=== PATIENT | female | born 1950 | race American Indian/Alaskan Native ===

== ENCOUNTER 2017-05-30 00:30 | Emergency (ER) | payer MEDICARE, MEDICAID ==
--- NOTE | 2017-05-30 02:26 | EDM.PDOC ---
ED HPI GENERAL MEDICAL PROBLEM - General Chief Complaint: General Stated Complaint: Dizziness Time Seen by Provider: 05/30/17 00:38 Source of Information: Reports: Patient History Limitations: Reports: No Limitations - History of Present Illness INITIAL COMMENTS - FREE TEXT/NARRATIVE: Pt. states that she is experiencing dizziness, particularly when going from sitting to standing. Pt. has a history of type 2 dm and currently prescribed metformin, but pt. refuses to take the metformin. She has been alert and easily arousable. Onset: Today Location: Reports: Generalized Worsens with: Reports: Movement Associated Symptoms: Reports: No Other Symptoms - Related Data Allergies Allergy/AdvReac Type Severity Reaction Status Date / Time codeine Allergy Abdominal Verified 05/30/17 01:02 Pain Home Meds: Home Meds . [No Known Home Meds] 05/30/17 [History] ED ROS GENERAL - Review of Systems Review Of Systems: See Below Constitutional: Reports: No Symptoms HEENT: Reports: No Symptoms Respiratory: Reports: Cough, Sputum Cardiovascular: Reports: No Symptoms Endocrine: Reports: High Glucose GI/Abdominal: Reports: No Symptoms : Reports: No Symptoms Musculoskeletal: Reports: No Symptoms Skin: Reports: No Symptoms Neurological: Reports: No Symptoms ED EXAM, GENERAL - Physical Exam Exam: See Below Exam Limited By: No Limitations General Appearance: Alert, WD/WN, No Apparent Distress Ears: Normal External Exam, Normal Canal, Hearing Grossly Normal, Normal TMs Nose: Normal Inspection, Normal Mucosa Throat/Mouth: Normal Inspection, Normal Lips, Normal Teeth Head: Atraumatic, Normocephalic Neck: Normal Inspection, Supple, Non-Tender, Full Range of Motion Respiratory/Chest: No Respiratory Distress, Lungs Clear, Normal Breath Sounds, No Accessory Muscle Use, Chest Non-Tender Cardiovascular: Normal Peripheral Pulses, Regular Rate, Rhythm, No Edema, No JVD , No Murmur, No Rub GI/Abdominal: Normal Bowel Sounds, Soft, Non-Tender, No Abnormal Bruit Neurological: Alert, Oriented, CN II-XII Intact, Normal Cognition, Normal Gait, Normal Reflexes, No Motor/Sensory Deficits Course - Vital Signs Last Recorded V/S: Last Vital Signs Temp 35 C L 05/30/17 00:30 Pulse 73 05/30/17 00:30 Resp 16 05/30/17 00:30 BP 155/66 H 05/30/17 00:30 Pulse Ox 94 L 05/30/17 00:30 - Orders/Labs/Meds Labs: Laboratory Tests 05/30/17 Range/Units 00:40 POC Glucose 171 H (74-106) mg/dL Departure - Departure Time of Disposition: 00:30 Disposition: Home, Self-Care 01 Condition: Good Clinical Impression: Hyperglycemia - Discharge Information Instructions: Type 2 Diabetes Mellitus, Adult Forms: ED Department Discharge Additional Instructions: Metformin 500mg twice daily Drink plenty of fluids Establish care at either [facility] [phone] [facility] [phone] - Assessment/Plan Assessment:: dehydration secondary to hyperglycemia Plan: Metformin 500mg twice daily Drink plenty of fluids Establish care at either [facility] [phone] [facility]
== END 2017-05-30 01:23 | disposition home or self-care (01) ==
LOC: VM.ED 00:30
DX: E11.65 Type 2 diabetes mellitus with hyperglycemia (principal); Z88.5 Allergy status to narcotic agent
CPT/HCPCS: 82962; 99283; 99283-GF

== ENCOUNTER 2017-12-22 16:13 | Emergency (ER) | payer MEDICARE, MEDICAID ==
[2017-12-22] MEDS ORDERED: Sodium Chloride 0.9% 10 ML Syringe FLUSH PRN (16:26)
[2017-12-22] MEDS ORDERED: Ondansetron 4 MG/2 ML SDV IVPUSH ONE (16:36)
--- NOTE | 2017-12-22 17:51 | EDM.PDOC ---
ED HPI GENERAL MEDICAL PROBLEM - General Chief Complaint: Abdominal Pain Stated Complaint: Abd Pain; N/V Time Seen by Provider: 12/22/17 16:24 Source of Information: Reports: Patient, Family, RN, RN Notes Reviewed History Limitations: Reports: No Limitations - History of Present Illness INITIAL COMMENTS - FREE TEXT/NARRATIVE: Patient sent to this ER from [facility] in [place] for a history of generalized abdominal pain, intractable nausea and vomiting for the past few days. Patient states her vomitus is green/bile like. She denies any diarrhea. Patient's appetite has been poor. She stop smoking 2 days ago. Patient also complains of a headache with blurry vision. She is having troubles with ambulation. She is a high risk for falls. She denies any recent infections. Patient is not really eating or drinking. She has a history of diabetes. No recent abdominal surgeries. Patient denies any chest pain or SOB. Duration: Waxing/Waning Location: Reports: Abdomen, Generalized Quality: Reports: Ache, Dull Severity: Mild Improves with: Reports: None Worsens with: Reports: Movement Context: Denies: Exercise, Sick Contact, Trauma Associated Symptoms: Reports: Headaches, Nausea/Vomiting Treatments MUSIC THERAPY SPECIALIST: Reports: Other (see below) (None) Abdominal Pain Score (Numeric/FACES): 5 - Related Data Allergies Allergy/AdvReac Type Severity Reaction Status Date / Time codeine Allergy Abdominal Verified 12/22/17 17:04 Pain isoniazid Allergy Cannot Verified 12/22/17 17:06 Remember methylprednisolone Allergy Cannot Verified 12/22/17 17:04 Remember dye Allergy Itching Uncoded 12/22/17 17:04 Home Meds: Home Meds Citalopram [Citalopram HBr] 40 mg PO DAILY 12/22/17 [History] Clopidogrel Bisulfate [Clopidogrel] 75 mg PO DAILY 12/22/17 [History] Diclofenac Sodium 25 mg PO BID 12/22/17 [History] Lisinopril 2.5 mg PO DAILY 12/22/17 [History] Simvastatin [Zocor] 40 mg PO BEDTIME 12/22/17 [History] metFORMIN [Glucophage XR] 500 mg PO BIDMEALS 12/22/17 [History] Past Medical History Cardiovascular History: Reports: CAD, High Cholesterol, Hypertension Gastrointestinal History: Reports: GERD Neurological History: Reports: CVA Endocrine/Metabolic History: Reports: Diabetes, Type II Social & Family History - Tobacco Use Smoking Status *Q: Current Every Day Smoker Years of Tobacco use: 50 Packs/Tins Daily: 2 ED ROS GENERAL - Review of Systems Review Of Systems: See Below Constitutional: Reports: Weakness, Fatigue. Denies: Fever, Chills HEENT: Reports: Vision Change Respiratory: Denies: Shortness of Breath, Cough Cardiovascular: Reports: Blood Pressure Problem. Denies: Chest Pain, Palpitations GI/Abdominal: Reports: Abdominal Pain, Decreased Appetite, Nausea, Vomiting. Denies: Black Stool, Bloody Stool, Diarrhea Skin: Reports: No Symptoms Neurological: Reports: Headache, Difficulty Walking ED EXAM, GI/ABD - Physical Exam Exam: See Below Exam Limited By: No Limitations General Appearance: Alert, No Apparent Distress, Cachetic Eyes: Bilateral: Normal Appearance, EOMI (PERRLA) Ears: Normal External Exam, Normal Canal, Normal TMs Head: Atraumatic, Normocephalic Neck: Supple Respiratory/Chest: No Respiratory Distress, Lungs Clear, Normal Breath Sounds Cardiovascular: Normal Peripheral Pulses, Regular Rate, Rhythm, No Edema GI/Abdominal Exam: Soft, Tender (generalized), Abnormal Bowel Sounds (Hypoactive ) Extremities: Normal Inspection Neurological: Alert, Oriented, Slow to Respond Skin Exam: Warm, Dry, Intact, Normal Color EKG INTERPRETATION EKG Date: 12/22/17 Time: 16:51 Rhythm: NSR Rate (Beats/Min): 63 [place]: Normal P-Wave: Present QRS: Normal ST-T: Normal QT: Normal CO/PQ Interval: 0.14 Comparison: NA - No Prior EKG EKG Interpretation Comments: 1. Sinus Rhythm 2. Normal ECG Course - Vital Signs Last Recorded V/S: Last Vital Signs Temp 36.1 C 12/22/17 16:36 Pulse 72 12/22/17 16:36 Resp 16 12/22/17 16:36 BP 202/84 H 12/22/17 16:36 Pulse Ox 95 12/22/17 16:36 - Orders/Labs/Meds Orders: Active Orders 24 hr Category Date Time Status EKG 12 Lead [EKG Documentation Completion] [RC] STAT Care 12/22/17 16:25 Active Abdomen Pelvis wo Cont [CT] Stat Exams 12/22/17 17:28 Taken Head wo Cont [CT] Stat Exams 12/22/17 16:24 Taken CULTURE BLOOD [BC] Stat Lab 12/22/17 16:43 Received CULTURE BLOOD [BC] Stat Lab 12/22/17 16:49 Received UA W/MICROSCOPIC [URIN] Stat Lab 12/22/17 16:35 Ordered Sodium Chloride 0.9% [Saline Flush] Med 12/22/17 16:26 Active 10 ml FLUSH ASDIRECTED PRN Blood Culture x2 Reflex Set [OM.PC] Stat Oth 12/22/17 16:25 Ordered Peripheral IV Insertion Adult [OM.PC] Routine Oth 12/22/17 16:26 Ordered Medication Orders Sodium Chloride (Saline Flush) 10 ml FLUSH ASDIRECTED PRN PRN Reason: Keep Vein Open Labs: Laboratory Tests 12/22/17 12/22/17 12/22/17 Range/Units 16:25 16:25 16:25 WBC 7.9 (4.0-10.0) x10^3/uL RBC 4.95 (4.00-5.50) x10^6/uL Hgb 13.8 (12.0-16.0) g/dL Hct 38.9 (33.0-47.0) % MCV 78.6 (78.0-93.0) fL MCH 27.9 (26.0-32.0) pg MCHC 35.5 (32.0-36.0) g/dL RDW Coeff of Silver 12.8 (10.0-15.0) % Plt Count 260 (130-400) x10^3/uL Neut % (Auto) 65.5 (50.0-80.0) % Lymph % (Auto) 24.5 L (25.0-50.0) % [place] % (Auto) 8.5 (2.0-11.0) % Eos % (Auto) 1.4 (0.0-4.0) % Baso % (Auto) 0.1 L (0.2-1.2) % PT (9.6-11.4) SEC INR (2.0-3.5) Sodium 129 L* D (136-145) mmol/L Potassium 3.0 L (3.5-5.1) mmol/L Chloride 93 L (98-107) mmol/L Carbon Dioxide 25 (21-32) mmol/L Anion Gap 14.0 (10-20) mmol/L BUN 20 H (7-18) mg/dL Creatinine 1.1 H (0.55-1.02) mg/dL Est Cr Clr Drug Dosing 39.93 mL/min Estimated GFR (MDRD) 49 Glucose 161 H (74-106) mg/dL Lactic Acid 1.1 (0.4-2.0) mmol/L Calcium 8.6 (8.5-10.1) mg/dL Corrected Calcium 9.08 (8.5-10.1) mg/dL Total Bilirubin 0.7 (0.2-1.0) mg/dL AST 17 (15-37) U/L ALT 15 (14-59) U/L Alkaline Phosphatase 117 H (46-116) U/L C-Reactive Protein 0.3 (<=0.9) mg/dL Total Protein 8.1 (6.4-8.2) g/dL Albumin 3.4 (3.4-5.0) g/dL Globulin 4.7 Albumin/Globulin Ratio 0.72 Amylase 77 (25-115) U/L Lipase 195 (73-393) U/L Urine Color (YELLOW) Urine Appearance (CLEAR) Urine pH (5.0-8.0) Ur Specific [place] Urine Protein (NEGATIVE) mg/dL Urine Glucose (UA) (NEGATIVE) mg/dL Urine Ketones (NEGATIVE) mg/dL Urine Occult Blood (NEGATIVE) Urine Nitrite (NEGATIVE) Urine Bilirubin (NEGATIVE) Urine Urobilinogen (0.2) EU/dL Ur Leukocyte Esterase (NEGATIVE) Urine RBC (NOT SEEN) /HPF Urine WBC (NOT SEEN) /HPF Ur Squamous Epith Cells (NEGATIVE) /HPF Urine Bacteria (NEGATIVE) /HPF Hyaline Casts (NEGATIVE) /HPF Urine Mucus (NEGATIVE) /LPF 12/22/17 12/22/17 Range/Units 16:25 16:35 WBC (4.0-10.0) x10^3/uL RBC (4.00-5.50) x10^6/uL Hgb (12.0-16.0) g/dL Hct (33.0-47.0) % MCV (78.0-93.0) fL MCH (26.0-32.0) pg MCHC (32.0-36.0) g/dL RDW Coeff of Silver (10.0-15.0) % Plt Count (130-400) x10^3/uL Neut % (Auto) (50.0-80.0) % Lymph % (Auto) (25.0-50.0) % [place] % (Auto) (2.0-11.0) % Eos % (Auto) (0.0-4.0) % Baso % (Auto) (0.2-1.2) % PT 9.3 L (9.6-11.4) SEC INR 0.9 L (2.0-3.5) Sodium (136-145) mmol/L Potassium (3.5-5.1) mmol/L Chloride (98-107) mmol/L Carbon Dioxide (21-32) mmol/L Anion Gap (10-20) mmol/L BUN (7-18) mg/dL Creatinine (0.55-1.02) mg/dL Est Cr Clr Drug Dosing mL/min Estimated GFR (MDRD) Glucose (74-106) mg/dL Lactic Acid (0.4-2.0) mmol/L Calcium (8.5-10.1) mg/dL Corrected Calcium (8.5-10.1) mg/dL Total Bilirubin (0.2-1.0) mg/dL AST (15-37) U/L ALT (14-59) U/L Alkaline Phosphatase (46-116) U/L C-Reactive Protein (<=0.9) mg/dL Total Protein (6.4-8.2) g/dL Albumin (3.4-5.0) g/dL Globulin Albumin/Globulin Ratio Amylase (25-115) U/L Lipase (73-393) U/L Urine Color Dark yellow H (YELLOW) Urine Appearance Clear (CLEAR) Urine pH 6.5 (5.0-8.0) Ur Specific [place] 1.020 Urine Protein 100 H (NEGATIVE) mg/dL Urine Glucose (UA) 100 H (NEGATIVE) mg/dL Urine Ketones Trace H (NEGATIVE) mg/dL Urine Occult Blood Negative (NEGATIVE) Urine Nitrite Negative (NEGATIVE) Urine Bilirubin Negative (NEGATIVE) Urine Urobilinogen 2.0 H (0.2) EU/dL Ur Leukocyte Esterase Negative (NEGATIVE) Urine RBC 0-5 (NOT SEEN) /HPF Urine WBC 0-5 (NOT SEEN) /HPF Ur Squamous Epith Cells Few H (NEGATIVE) /HPF Urine Bacteria Not seen (NEGATIVE) /HPF Hyaline Casts Few H (NEGATIVE) /HPF Urine Mucus Not seen (NEGATIVE) /LPF Meds: Medications Generic Name Dose Route Start Last Admin Trade Name Freq PRN Reason Stop Dose Admin Sodium Chloride 10 ml 12/22/17 16:26 Saline Flush FLUSH ASDIRECTED PRN Keep Vein Open Discontinued Medications Generic Name Dose Route Start Last Admin Trade Name Freq PRN Reason Stop Dose Admin Ondansetron HCl 4 mg 12/22/17 16:36 12/22/17 16:43 Zofran IVPUSH 12/22/17 16:37 4 mg ONETIME ONE Administration - Radiology Interpretation Free Text/Narrative:: CT HEAD: No acute intracranial process CT ABD/PELVIS: Mild inflammatory changes of the terminal ileum and proximal colon which are nonspecific and may be related to infection or inflammation ( i.e., Crohn's disease) See scanned reports in EMR CT Results Date: 12/22/17 CT Results Time: 17:53 Departure - Departure Time of Disposition: 18:32 Disposition: DC/Tfer to [facility] 02 Condition: Fair Clinical Impression: Hypertensive urgency, Acute kidney injury (nontraumatic), Hyponatremia Nausea & vomiting Qualifiers: Vomiting type: unspecified Vomiting Intractability: intractable Qualified Code( s): R11.2 - Nausea with vomiting, unspecified - Discharge Information Forms: Interfacility Transfer [facility] ED Communication - ED Communication Date/Time Date: 12/22/17 Time Called: 18:20 - Discussed Case With (1) Discussed Case With (1): Admitting Provider (Dr. Bradley, ) - Conversation Summary Admitting Provider Agreed to Patient's Admission: Yes Patient Aware of Amendments fo Care Plan: Yes - Problem List Review Problem List Initiated/Reviewed/Updated: Yes - My Orders Last 24 Hours: My Active Orders 12/22/17 16:24 Head wo Cont [CT] Stat 12/22/17 16:25 EKG 12 Lead [EKG Documentation Completion] [RC] STAT Blood Culture x2 Reflex Set [OM.PC] Stat 12/22/17 16:26 Sodium Chloride 0.9% [Saline Flush] 10 ml FLUSH ASDIRECTED PRN Peripheral IV Insertion Adult [OM.PC] Routine 12/22/17 16:35 UA W/MICROSCOPIC [URIN] Stat 12/22/17 16:43 CULTURE BLOOD [BC] Stat 12/22/17 16:49 CULTURE BLOOD [BC] Stat 12/22/17 17:28 Abdomen Pelvis wo Cont [CT] Stat - Assessment/Plan Last 24 Hours: My Active Orders 12/22/17 16:24 Head wo Cont [CT] Stat 12/22/17 16:25 EKG 12 Lead [EKG Documentation Completion] [RC] STAT Blood Culture x2 Reflex Set [OM.PC] Stat 12/22/17 16:26 Sodium Chloride 0.9% [Saline Flush] 10 ml FLUSH ASDIRECTED PRN Peripheral IV Insertion Adult [OM.PC] Routine 12/22/17 16:35 UA W/MICROSCOPIC [URIN] Stat 12/22/17 16:43 CULTURE BLOOD [BC] Stat 12/22/17 16:49 CULTURE BLOOD [BC] Stat 12/22/17 17:28 Abdomen Pelvis wo Cont [CT] Stat Assessment:: Acute Kidney Injury Dehydration Hypertensive Urgency N/V Plan: Case discussed with Dr. Bradley, [facility]. Patient accepted in transfer. Patient will be sent to [facility] for further workup and admission. Patient will be send ALS ground. Patient and family agree with transfer and wish to proceed.
[2017-12-22] MEDS ORDERED: hydrALAZINE 20 MG/ML SDV IVPUSH ONE (18:39)
[2017-12-22] MEDS ORDERED: Sodium Chloride 0.9% 1,000 ML IV ONE (18:40)
[2017-12-22] MEDS ORDERED: Enalaprilat 1.25 MG/ML SDV IVPUSH ONE (19:07)
[2017-12-22] MEDS ORDERED: niCARdipine HCl 25 MG in Sodium Chloride 0.9% 240 ML IV SCH (19:30)
== END 2017-12-22 19:40 | disposition short-term general hospital (02) ==
LOC: VM.ED 16:13
DX: I16.0 Hypertensive urgency (principal); E86.0 Dehydration; E87.1 Hypo-osmolality and hyponatremia; N17.9 Acute kidney failure, unspecified; E78.00 Pure hypercholesterolemia, unspecified; I10 Essential (primary) hypertension; E11.9 Type 2 diabetes mellitus without complications; F17.210 Nicotine dependence, cigarettes, uncomplicated; Z88.5 Allergy status to narcotic agent; Z88.8 Allergy status to other drugs, medicaments and biological substances; Z91.041 Radiographic dye allergy status; Z79.84 Long term (current) use of oral hypoglycemic drugs; Z79.899 Other long term (current) drug therapy
CPT/HCPCS: 36415; 70450; 74176; 80053; 81001; 82150; 83605; 83690; 85025; 85610; 86140; 87040; 93005; 96361; 96374; 96375; 99285; J0360; J2405; J7030; J7050; 93010; 99284-GF-25

== ENCOUNTER 2019-02-23 00:05 | Emergency (ER) | payer MEDICARE, MEDICAID ==
[2019-02-23] MEDS ORDERED: Sodium Chloride 0.9% 10 ML Syringe FLUSH PRN (00:56)
--- NOTE | 2019-02-23 01:09 | EDM.PDOC ---
ED HPI GENERAL MEDICAL PROBLEM - General Chief Complaint: Syncope Stated Complaint: Syncopal Episode Time Seen by Provider: 02/23/19 00:05 Source of Information: Reports: Patient, EMS, EMS Notes Reviewed History Limitations: Reports: No Limitations - History of Present Illness INITIAL COMMENTS - FREE TEXT/NARRATIVE: Patient comes into the emergency department via for complaints of possible unresponsive/syncopal episode. Patient states that she was sitting in her chair dozing on and off at bedtime she was watching TV. Patient states that she awoke to have in someone doing heavy breathing in her face. Bystander states she was dozing on and off and then fell onto the floor. He tried to wake her but was unable. 911 was called. Pt was awake and talking when EMS arrived on scene. Patient states she just fell asleep because she was tired. She denies of any complaints or concerns. EMS state the pt did take 1 anxiety pill earlier in the day and the pt states it was around noon. She normally does not take those medications. She did admit to nursing that she was smoking Marijuana earlier in the night as well which makes her tired. Onset: Sudden Severity: Mild Worsens with: Reports: None Associated Symptoms: Reports: No Other Symptoms - Related Data Allergies Allergy/AdvReac Type Severity Reaction Status Date / Time codeine Allergy Abdominal Verified 12/22/17 17:04 Pain isoniazid Allergy Cannot Verified 12/22/17 17:06 Remember methylprednisolone Allergy Cannot Verified 12/22/17 17:04 Remember dye Allergy Itching Uncoded 12/22/17 17:04 Home Meds: Home Meds Citalopram [Citalopram HBr] 40 mg PO DAILY 12/22/17 [History] Clopidogrel Bisulfate [Clopidogrel] 75 mg PO DAILY 12/22/17 [History] Diclofenac Sodium 25 mg PO BID 12/22/17 [History] Lisinopril 2.5 mg PO DAILY 12/22/17 [History] Simvastatin [Zocor] 40 mg PO BEDTIME 12/22/17 [History] metFORMIN [Glucophage XR] 500 mg PO BIDMEALS 12/22/17 [History] Past Medical History Cardiovascular History: Reports: CAD, High Cholesterol, Hypertension Gastrointestinal History: Reports: GERD Neurological History: Reports: CVA Endocrine/Metabolic History: Reports: Diabetes, Type II ED ROS GENERAL - Review of Systems Review Of Systems: ROS reveals no pertinent complaints other than HPI. Constitutional: Reports: No Symptoms HEENT: Reports: No Symptoms Respiratory: Reports: No Symptoms Cardiovascular: Reports: No Symptoms Endocrine: Reports: No Symptoms GI/Abdominal: Reports: No Symptoms : Reports: No Symptoms Musculoskeletal: Reports: No Symptoms Skin: Reports: No Symptoms Neurological: Reports: No Symptoms Psychiatric: Reports: No Symptoms Hematologic/Lymphatic: Reports: No Symptoms Immunologic: Reports: No Symptoms ED EXAM, GENERAL - Physical Exam Exam: See Below Exam Limited By: No Limitations General Appearance: Alert, WD/WN, No Apparent Distress Respiratory/Chest: No Respiratory Distress, Lungs Clear, Normal Breath Sounds, No Accessory Muscle Use, Chest Non-Tender Cardiovascular: Normal Peripheral Pulses, Regular Rate, Rhythm, No Edema Extremities: Normal Inspection, Normal Range of Motion, Non-Tender, No Pedal Edema, Normal Capillary Refill Neurological: Alert, Oriented, Normal Gait Psychiatric: Normal Affect, Normal Mood Skin Exam: Warm, Dry, Intact, Normal Color Course - Vital Signs Last Recorded V/S: Last Vital Signs Temp 36.4 C 02/23/19 00:37 Pulse 65 02/23/19 00:37 Resp 16 02/23/19 00:37 BP 125/51 L 02/23/19 00:37 Pulse Ox 95 02/23/19 00:37 - Orders/Labs/Meds Orders: Active Orders 24 hr Category Date Time Status EKG Documentation Completion [RC] STAT Care 02/23/19 00:56 Active Chest 1V Frontal [CR] Stat Exams 02/23/19 00:00 Taken Sodium Chloride 0.9% [Saline Flush] Med 02/23/19 00:56 Active 10 ml FLUSH ASDIRECTED PRN Peripheral IV Insertion Adult [OM.PC] Stat Oth 02/23/19 00:56 Ordered Medication Orders Sodium Chloride (Saline Flush) 10 ml FLUSH ASDIRECTED PRN PRN Reason: Keep Vein Open Labs: Laboratory Tests 02/23/19 02/23/19 Range/Units 00:14 00:14 WBC 7.7 (4.0-10.0) x10^3/uL RBC 4.19 (4.00-5.50) x10^6/uL Hgb 11.5 L D (12.0-16.0) g/dL Hct 35.4 (33.0-47.0) % MCV 84.5 D (78.0-93.0) fL MCH 27.4 (26.0-32.0) pg MCHC 32.5 (32.0-36.0) g/dL RDW Coeff of Silver 13.8 (10.0-15.0) % Plt Count 233 (130-400) x10^3/uL Neut % (Auto) 49.5 L (50.0-80.0) % Lymph % (Auto) 38.4 (25.0-50.0) % [place] % (Auto) 7.0 (2.0-11.0) % Eos % (Auto) 4.8 H (0.0-4.0) % Baso % (Auto) 0.3 (0.2-1.2) % Sodium 140 (136-145) mmol/L Potassium 4.1 (3.5-5.1) mmol/L Chloride 104 (98-107) mmol/L Carbon Dioxide 26 (21-32) mmol/L Anion Gap 14.1 (10-20) mmol/L BUN 23 H (7-18) mg/dL Creatinine 1.4 H (0.55-1.02) mg/dL Est Cr Clr Drug Dosing TNP Estimated GFR (MDRD) 37 Glucose 148 H (74-106) mg/dL Calcium 8.7 (8.5-10.1) mg/dL Corrected Calcium 9.42 (8.5-10.1) mg/dL Total Bilirubin 0.3 (0.2-1.0) mg/dL AST 12 L (15-37) U/L ALT 14 (14-59) U/L Alkaline Phosphatase 114 (46-116) U/L Creatine Kinase < 7 L (26-192) U/L Troponin I 0.072 H* (<=0.056) ng/mL NT-Pro-B Natriuret Pep 680 H (<=125) pg/mL Total Protein 6.9 (6.4-8.2) g/dL Albumin 3.1 L (3.4-5.0) g/dL Globulin 3.8 Albumin/Globulin Ratio 0.82 Meds: Medications Generic Name Dose Route Start Last Admin Trade Name Freq PRN Reason Stop Dose Admin Sodium Chloride 10 ml 02/23/19 00:56 Saline Flush FLUSH ASDIRECTED PRN Keep Vein Open Discontinued Medications Generic Name Dose Route Start Last Admin Trade Name Flavio PRN Reason Stop Dose Admin Aspirin 324 mg 02/23/19 01:22 Aspirin PO 02/23/19 01:23 ONETIME ONE Departure - Departure Time of Disposition: 01:35 Disposition: DC/Tfer to Acute Hospital 02 Condition: Good Clinical Impression: Elevated troponin Syncope Qualifiers: Syncope type: unspecified Qualified Code(s): R55 - Syncope and collapse - Discharge Information *PRESCRIPTION DRUG MONITORING PROGRAM REVIEWED*: Not Applicable *COPY OF PRESCRIPTION DRUG MONITORING REPORT IN PATIENT PETRA: Not Applicable Referrals: Del Bernal NP [Primary Care Provider] - Forms: ED Department Discharge, Interfacility Transfer EMTALA - Problem List Review Problem List Initiated/Reviewed/Updated: Yes - My Orders Last 24 Hours: My Active Orders 02/23/19 00:00 Chest 1V Frontal [CR] Stat 02/23/19 00:56 EKG Documentation Completion [RC] STAT Sodium Chloride 0.9% [Saline Flush] 10 ml FLUSH ASDIRECTED PRN Peripheral IV Insertion Adult [OM.PC] Stat - Assessment/Plan Last 24 Hours: My Active Orders 02/23/19 00:00 Chest 1V Frontal [CR] Stat 02/23/19 00:56 EKG Documentation Completion [RC] STAT Sodium Chloride 0.9% [Saline Flush] 10 ml FLUSH ASDIRECTED PRN Peripheral IV Insertion Adult [OM.PC] Stat Assessment:: 1. syncopal episode 2. Elevated Troponin Plan: 1. Labs completed in ER. Results reviewed with the patient 2. X-ray completed in the ER. Results reviewed with the patient 3. EKG completed in ER. 4. Pt continues to have no concerns or complaints in the ER. 5. Lab called with a critical troponin 0.072 6. [facility] was contacted and Dr. Geronimo is willing to accept care of the patient. The patient will be transported via ALS for further evaluation and management of elevated troponin and syncopal episode tonight. 7. All questions and concerns addressed prior to discharge
[2019-02-23 01:18] LABS: CHLORIDE,CL 104 mmol/L (98-107); SODIUM,NA 140 mmol/L (136-145)
[2019-02-23 01:19] LABS: ANION GAP 14.1 mmol/L (10-20)
[2019-02-23] MEDS ORDERED: Aspirin 81 MG Tab.Chew PO ONE (01:22)
--- NOTE | 2019-02-23 08:16 | CR ---
[id number] RAD/RAD Chest PA or AP 1V EXAM: FRONTAL CHEST INDICATION: Syncope. COMPARISON: June 30, 2009. DISCUSSION: Lungs are mildly hyperinflated with chronic left base scarring. Mild perihilar bronchial wall thickening suggests bronchitis. No acute infiltrates are identified. Normal heart size. IMPRESSION: 1. Findings suggestive of bronchitis. Iker Pretty MD 02/23/19 0815 Thank you for allowing us to participate in the care of your patient.
== END 2019-02-23 03:05 | disposition short-term general hospital (02) ==
LOC: VM.ED 00:05
DX: R55 Syncope and collapse (principal); R79.89 Other specified abnormal findings of blood chemistry; E11.9 Type 2 diabetes mellitus without complications; I10 Essential (primary) hypertension; K21.9 Gastro-esophageal reflux disease without esophagitis; Z79.899 Other long term (current) drug therapy; Z88.8 Allergy status to other drugs, medicaments and biological substances; Z91.041 Radiographic dye allergy status; Z88.5 Allergy status to narcotic agent
CPT/HCPCS: 36415; 71045; 80053; 82550; 83880; 84484; 85025; 93005; 99284; 99285; A9270

== ENCOUNTER 2020-03-03 15:38 | Emergency (ER) | payer MEDICARE, MEDICAID ==
--- NOTE | 2020-03-03 17:07 | CT ---
[id number] CT/CT Head WO IV EXAM: CT Head WO IV CLINICAL DATA: FELL HITTING HEAD. COMPARISON STUDY: February 2018. FINDINGS: No intracranial hemorrhage, extra-axial fluid collection, mass, or acute ischemia. Chronic small vessel disease in the brain. Findings are similar to the prior examination. No hydrocephalus. Calvarium intact. IMPRESSION: No acute findings in the brain or significant change from the prior examination. Yann Joseph MD 03/03/20 [id number] Thank you for allowing us to participate in the care of your patient.
--- NOTE | 2020-03-03 17:10 | CR ---
[id number] RAD/RAD Lumbar Spine 2-3V Exam: RAD Lumbar Spine 2-3V Indication:Fall Comparison: CT from December 2017. Discussion: Mild anterior wedging of the L1 vertebral body. Finding was seen on CT from 2018. There is increased vertebral body height loss since that examination. In the setting of recent fall, acute on chronic compression fractures possible. Consider noncontrast CT examination of the lumbar spine for further evaluation. No other evidence of fracture in the lumbar spine. Mild to moderate changes of spondylosis, including degenerative disc disease with intervertebral disc height loss at L2-3 and L5-S1. IVC filter remains in place centered on the L3-4 disc space. No change in position compared to prior CT examination. Impression: Possible acute on chronic L1 compression fracture, described above with recommendations. Yann Joseph MD 03/03/20 [id number] Thank you for allowing us to participate in the care of your patient.
--- NOTE | 2020-03-03 18:01 | CT ---
[id number] CT/CT Lumbar Spine WO IV Exam: CT Lumbar Spine WO IV Indication:? COMPRESSION FRACTURE. Comparison: Radiograph from today. Discussion: Linear lucency through the superior endplate of the L1 vertebral body, consistent with an acute fracture. This is seen best on coronal series 5 images 32 and 41 right of midline. This is associated with the increased superior endplate depression seen on radiograph from today. Mild/moderate changes of lumbar spondylosis, correlating with findings on radiograph from today's well. Incidentally noted are calcified lymph nodes in the gualberto hepatis region. Findings were seen on examination from 2018 and are stable. Impression: Acute on chronic L1 compression fracture with slightly increased vertebral body height loss compared to examination from December 2017. Yann Joseph MD 03/03/20 1800 Thank you for allowing us to participate in the care of your patient.
[2020-03-03] MEDS ORDERED: Acetaminophen/HYDROcodone 325-5 MG Tab PO ONE (18:08)
[2020-03-03] MEDS ORDERED: fentaNYL 100 MCG/2 ML SDV IVPUSH ONE (18:18)
[2020-03-03] MEDS ORDERED: Take Home: Acetaminophen/HYDROcodone 325-5 MG, 5 Tab Pack PO ONE (19:02)
[2020-03-03] MEDS ORDERED: Take Home: Ondansetron 4 MG Tab.DIS, 2 Tab Pack PO ONE (19:02)
--- NOTE | 2020-03-04 06:25 | EDM.PDOC ---
ED HPI GENERAL MEDICAL PROBLEM - General Chief Complaint: Back Pain or Injury Stated Complaint: FELL Time Seen by Provider: 03/03/20 15:40 Source of Information: Reports: Patient, EMS History Limitations: Reports: No Limitations - History of Present Illness INITIAL COMMENTS - FREE TEXT/NARRATIVE: Pt. states that she tripped over her dog's leash while she was walking it. She states that she fell backward, landing on her back and striking her head. There was no LOC. She is not currently on any blood thinners. Pt. only complaint is of low back pain across her entire lower back. Denies numbness/tingling in extremities. No mid or upper back pain. Denies any extremity trauma or pelvic pain. Pt. states that she has had issues with chronic low back pain in the past, and feels that this fall has exacerbated it. Pt. denies any chest pain, palpitations, weakness, shortness of breath, or lightheadedness prior to or after the fall, and affirms it was a mechanical fall secondary to tripping over her dog. No saddle anesthesia or incontinence. No radiculopathy. Onset: Today Location: Reports: Head, Back Quality: Reports: Ache Lower Back Pain Score (Numeric/FACES): 8 - Related Data Allergies Allergy/AdvReac Type Severity Reaction Status Date / Time codeine Allergy Abdominal Verified 03/03/20 15:54 Pain isoniazid Allergy Cannot Verified 03/03/20 15:54 Remember methylprednisolone Allergy Cannot Verified 03/03/20 15:54 Remember dye Allergy Itching Uncoded 02/23/19 01:36 Home Meds: Home Meds Citalopram [Citalopram HBr] 40 mg PO DAILY 12/22/17 [History] Clopidogrel Bisulfate [Clopidogrel] 75 mg PO DAILY 12/22/17 [History] Simvastatin [Zocor] 40 mg PO BEDTIME 12/22/17 [History] metFORMIN [Glucophage XR] 1,000 mg PO BIDMEALS 12/22/17 [History] Levothyroxine 25 mcg PO ACBREAKFAST 02/23/19 [History] Albuterol [Proair HFA] 2 puff INH Q4HR PRN 03/03/20 [History] Albuterol [Ventolin 2 MG/5 ML] 0.4 mg PO Q4H PRN 03/03/20 [History] Telmisartan 20 mg PO DAILY 03/03/20 [History] Past Medical History Cardiovascular History: Reports: CAD, High Cholesterol, Hypertension Gastrointestinal History: Reports: GERD Genitourinary History: Reports: Renal Disease Neurological History: Reports: CVA Psychiatric History: Reports: Depression Endocrine/Metabolic History: Reports: Diabetes, Type II Social & Family History - Tobacco Use Smoking Status *Q: Unknown Ever Smoked - Caffeine Use Caffeine Use: Reports: Coffee, Soda Caffeine Use Comment: 4 to 5 cups of coffee daily; 2 sodas daily ED ROS GENERAL - Review of Systems Review Of Systems: See Below Constitutional: Reports: No Symptoms HEENT: Reports: No Symptoms Respiratory: Reports: No Symptoms Cardiovascular: Reports: No Symptoms Endocrine: Reports: No Symptoms GI/Abdominal: Reports: No Symptoms : Reports: No Symptoms Musculoskeletal: Reports: Back Pain Skin: Reports: No Symptoms Neurological: Reports: No Symptoms Psychiatric: Reports: No Symptoms Hematologic/Lymphatic: Reports: No Symptoms Immunologic: Reports: No Symptoms ED EXAM, GENERAL - Physical Exam Exam: See Below Exam Limited By: No Limitations General Appearance: Alert, WD/WN, No Apparent Distress Eye Exam: Bilateral Eye: EOMI, Normal Fundi, Normal Inspection, PERRL Ears: Normal External Exam, Normal Canal, Hearing Grossly Normal, Normal TMs Ear Exam: Bilateral Ear: Auricle Normal, Canal Normal, TM normal Nose: Normal Inspection, Normal Mucosa, No Blood Throat/Mouth: Normal Inspection, Normal Lips, Normal Voice, No Airway Compromise Head: Atraumatic, Normocephalic, Other (No obvious trauma noted.) Neck: Normal Inspection, Supple, Non-Tender, Full Range of Motion Respiratory/Chest: No Respiratory Distress, Lungs Clear, Normal Breath Sounds, No Accessory Muscle Use, Chest Non-Tender Cardiovascular: Normal Peripheral Pulses, Regular Rate, Rhythm, No Edema, No JVD, No Murmur Peripheral Pulses: 4+: Radial (L) GI/Abdominal: Non-Tender, No Distention, No Mass (Female) Exam: Deferred Rectal (Female) Exam: Deferred Back Exam: Normal Inspection, Muscle Spasm, Paraspinal Tenderness, Vertebral Tenderness, Other (discomfort on palp across back, midline and laterally. ROM decreased due to discomfort. No obvious rebecca injury noted. No discomfort to palp of cervical or thoracic spine.) Extremities: Normal Inspection, Normal Range of Motion, Non-Tender, No Pedal Edema, Normal Capillary Refill Neurological: Alert, Oriented, CN II-XII Intact, Normal Cognition, No Motor/Sensory Deficits, Other (Pt. is neurologically intact. No saddle anesthesia or incontinence. No radiculopathy.) Psychiatric: Normal Affect, Normal Mood Skin Exam: Warm, Dry, Intact, Normal Color, No Rash Lymphatic: No Adenopathy Course - Vital Signs Last Recorded V/S: Last Vital Signs Temp 36.7 C 03/03/20 18:45 Pulse 82 03/03/20 18:45 Resp 16 03/03/20 18:45 BP 185/73 H 03/03/20 18:45 Pulse Ox 95 03/03/20 18:45 - Orders/Labs/Meds Meds: Medications Discontinued Medications Generic Name Dose Route Start Last Admin Trade Name Flavio PRN Reason Stop Dose Admin Hydrocodone Bitart/Acetaminophen 1 tab 03/03/20 18:08 [place] 325-5 Mg PO 03/03/20 18:09 ONETIME ONE Hydrocodone Bitart/Acetaminophen 1 packet 03/03/20 19:02 03/03/20 19:10 Take Home: Acetam/Hydrocodon 325-5 Mg, 5 Pack PO 03/03/20 19:03 1 packet ONETIME ONE Administration Fentanyl 50 mcg 03/03/20 18:18 03/03/20 18:39 Sublimaze IVPUSH 03/03/20 18:19 50 mcg ONETIME ONE Administration Ondansetron HCl 1 packet 03/03/20 19:02 03/03/20 19:10 Take Home: Ondansetron Odt 4 Mg, 2 Tab Pack PO 03/03/20 19:03 1 packet ONETIME ONE Administration - Radiology Interpretation Free Text/Narrative:: CT brain negative. Decreased height of L1 vertebrae noted on plain film. Probable acute on chronic L1 compression fx. noted on CT. - Re-Assessments/Exams Free Text/Narrative Re-Assessment/Exam: Pain well controlled with IV fentanyl. Discussed case with Dr. Ellington. He feels that the patient can be discharged today for outpatient MRI and follow-up tomorrow. He will discuss physical therapy, need for bracing, etc. Departure - Departure Time of Disposition: 19:18 Disposition: Home, Self-Care 01 Clinical Impression: Compression fracture of L1 lumbar vertebra - Discharge Information Instructions: Acetaminophen; Hydrocodone tablets or capsules, Ondansetron oral dissolving tablet, Spinal Compression Fracture Referrals: Del Bernal TOOTH CUTTER [Primary Care Provider] - Forms: ED Department Discharge Additional Instructions: [place] 5/325mg 1 every 4-6 hours as needed for pain Take this medication with something to eat. Zofran ODT 4mg 1 every 6 hours as needed for nausea Contact Dr. Hill's office tomorrow AM (8 AM). The number is [phone]. Dr. Hill would like her to have an MRI of her low back and then see Dr. Hill in the afternoon after the MRI is done. He will discuss management of this problem. Sepsis Event Note (ED) - Evaluation Sepsis Screening Result: No Definite Risk - Focused Exam Vital Signs: Vital Signs Temp Pulse Resp BP Pulse Ox 03/03/20 18:45 36.7 C 82 16 185/73 H 95 - Assessment/Plan Plan: [place] 5/325mg 1 every 4-6 hours as needed for pain Take this medication with something to eat. Zofran ODT 4mg 1 every 6 hours as needed for nausea Contact Dr. Hill's office tomorrow AM (8 AM). The number is [phone]. Dr. Hill would like her to have an MRI of her low back and then see Dr. Hill in the afternoon after the MRI is done. He will discuss management of this problem.
== END 2020-03-03 19:18 | disposition home or self-care (01) ==
LOC: VM.ED 15:38
DX: S32.019A Unspecified fracture of first lumbar vertebra, initial encounter for closed fracture (principal); I10 Essential (primary) hypertension; E78.00 Pure hypercholesterolemia, unspecified; I25.10 Atherosclerotic heart disease of native coronary artery without angina pectoris; F32.9 Major depressive disorder, single episode, unspecified; E11.9 Type 2 diabetes mellitus without complications; Z86.73 Personal history of transient ischemic attack (TIA), and cerebral infarction without residual deficits; Z88.5 Allergy status to narcotic agent; Z91.041 Radiographic dye allergy status; Z88.8 Allergy status to other drugs, medicaments and biological substances; Z79.84 Long term (current) use of oral hypoglycemic drugs; Z79.02 Long term (current) use of antithrombotics/antiplatelets; Z79.899 Other long term (current) drug therapy; W01.10XA Fall on same level from slipping, tripping and stumbling with subsequent striking against unspecified object, initial encounter; Y93.01 Activity, walking, marching and hiking
CPT/HCPCS: 70450; 72100; 72131; 96374; 99284-25; 99284-GF; A9270-GY; J3010

== ENCOUNTER 2020-06-30 21:58 | Emergency (ER) | payer MEDICARE, MEDICAID ==
[2020-06-30] MEDS ORDERED: Sodium Chloride 0.9% 10 ML Syringe FLUSH PRN (22:19)
--- NOTE | 2020-06-30 22:24 | EDM.PDOC ---
ED HPI GENERAL MEDICAL PROBLEM - General Time Seen by Provider: 06/30/20 22:06 Source of Information: Reports: Patient, Family - History of Present Illness INITIAL COMMENTS - FREE TEXT/NARRATIVE: Oksana is a 69 y/o female who is brought to the ER by her son after she started to feel tired and dizzy this evening. She has been more tired today and not eating much. She has been drinking coffee, but not really much water today. QM=083 at home. Patient was starting to answer questions for RN and POCKET SECRETARY ASSEMBLER and then she was assisted to sit up and started to have a seizure. Her son was contacted by phone and further history obtained. Son reports that the patient had a seizure about 1 year ago and then also about 5 years ago around the time when she had a stroke. She is not currently on seizure meds. - Related Data Allergies Allergy/AdvReac Type Severity Reaction Status Date / Time codeine Allergy Abdominal Verified 07/01/20 00:33 Pain isoniazid Allergy Cannot Verified 07/01/20 00:33 Remember methylprednisolone Allergy Cannot Verified 07/01/20 00:33 Remember dye Allergy Itching Uncoded 07/01/20 00:33 Home Meds: Home Meds Citalopram [Citalopram HBr] 40 mg PO DAILY 12/22/17 [History] Clopidogrel Bisulfate [Clopidogrel] 75 mg PO DAILY 12/22/17 [History] Simvastatin [Zocor] 40 mg PO BEDTIME 12/22/17 [History] metFORMIN [Glucophage XR] 1,000 mg PO BIDMEALS 12/22/17 [History] Levothyroxine 25 mcg PO ACBREAKFAST 02/23/19 [History] Albuterol [Proair HFA] 2 puff INH Q4HR PRN 03/03/20 [History] Albuterol [Ventolin 2 MG/5 ML] 0.4 mg PO Q4H PRN 03/03/20 [History] Telmisartan 20 mg PO DAILY 03/03/20 [History] Past Medical History Cardiovascular History: Reports: CAD, High Cholesterol, Hypertension Gastrointestinal History: Reports: GERD Genitourinary History: Reports: Renal Disease Neurological History: Reports: CVA Psychiatric History: Reports: Depression Endocrine/Metabolic History: Reports: Diabetes, Type II Social & Family History - Caffeine Use Caffeine Use: Reports: Coffee, Soda Caffeine Use Comment: 4 to 5 cups of coffee daily; 2 sodas daily Review of Systems - Review of Systems Review Of Systems: Unable To Obtain Reason Not Obtained: Patient started to have a seziure in the ER and then drowsy. Constitutional: Reports: No Symptoms ED EXAM, GENERAL - Physical Exam Exam: See Below General Appearance: Alert, WD/WN, No Apparent Distress, Other (Elderly female started to answer questions, then seziure started.) Eye Exam: Bilateral Eye: PERRL Ears: Normal External Exam, Hearing Grossly Normal, Normal TMs Nose: Normal Inspection, Normal Mucosa Throat/Mouth: Normal Inspection, Normal Voice Head: Atraumatic, Normocephalic Neck: Supple Respiratory/Chest: No Respiratory Distress, Lungs Clear, Normal Breath Sounds Cardiovascular: Regular Rate, Rhythm GI/Abdominal: Normal Bowel Sounds, Soft (Female) Exam: Deferred Rectal (Female) Exam: Deferred Back Exam: Normal Inspection Extremities: Normal Inspection Neurological: Alert, CN II-XII Intact, Other (Noted tonic clonic type seizure with both her arms moving and patient was incontinent of urine.) Skin Exam: Warm, Dry, Intact, Normal Color #1 Interpretation EKG Date: 07/01/20 Time: 23:59 Rhythm: NSR Rate (Beats/Min): 71 [place]: Normal P-Wave: Present QRS: Normal ST-T: Normal QT: Prolonged (borderline) Comparison: NA - No Prior EKG Course - Vital Signs Text/Narrative:: 2205 The patient was seen by the POCKET SECRETARY ASSEMBLER. Seizure lasting about 45 seconds noted and then patient quite drowsy and became nauseated. Noted that she was incontinent of urine. Labs, EKG, CXR, and Head CT ordered. She was given Zofran 4mg IVP. 2345 CT results reviewed, note possible cerebellar infarct or artifact-MRI recommended. [facility] contacted and case discussed with Dr Domínguez. Patient accepted for transfer to [facility]. Labs pending, will call [facility] with results for bed placement. Patient is > 4 1/2 hours from onset of symptoms and has had a seizure so she is not a TPA candidate. Patient resting at this time. 0020 Labs reviewed. Labs called to [facility]. Awaiting bed assignment. Patient remained stable until departing the ER with [facility]. On departure she was more alert and able to answer questions. She will be a direct admit to [facility]. 0040 [facility] paged for transport. - Orders/Labs/Meds Orders: Active Orders 24 hr Category Date Time Status EKG Documentation Completion [RC] STAT Care 06/30/20 22:18 Active Chest 1V Frontal [CR] Stat Exams 06/30/20 22:19 Taken Head wo Cont [CT] Stat Exams 06/30/20 22:19 Ordered UA RFX JANICE AND CULT IF INDIC [URIN] Stat Lab 06/30/20 22:19 Ordered URINE DRUG SCREEN,POC [POC] Stat Lab 06/30/20 22:18 Ordered Sodium Chloride 0.9% [Normal Saline] 1,000 ml Med 07/01/20 00:08 Active IV ONETIME Sodium Chloride 0.9% [Saline Flush] Med 06/30/20 22:19 Active 10 ml FLUSH ASDIRECTED PRN Saline Lock Insert [OM.PC] Stat Oth 06/30/20 22:18 Ordered Medication Orders Sodium Chloride (Normal Saline) 1,000 mls @ 50 mls/hr IV ONETIME ONE Stop: 07/01/20 20:07 Sodium Chloride (Saline Flush) 10 ml FLUSH ASDIRECTED PRN PRN Reason: Keep Vein Open Labs: Laboratory Tests 06/30/20 06/30/20 06/30/20 Range/Units 23:20 23:44 23:44 WBC 11.0 H (4.0-10.0) x10^3/uL RBC 4.32 (4.00-5.50) x10^6/uL Hgb 11.8 L (12.0-16.0) g/dL Hct 35.9 (33.0-47.0) % MCV 83.1 (78.0-93.0) fL MCH 27.3 (26.0-32.0) pg MCHC 32.9 (32.0-36.0) g/dL RDW Coeff of Silver 13.5 (10.0-15.0) % Plt Count 250 (130-400) x10^3/uL Neut % (Auto) 89.7 H (50.0-80.0) % Lymph % (Auto) 6.1 L (25.0-50.0) % [place] % (Auto) 3.5 (2.0-11.0) % Eos % (Auto) 0.5 (0.0-4.0) % Baso % (Auto) 0.2 (0.2-1.2) % PT 10.5 (9.5-12.3) SEC INR 1.0 L (2.0-3.5) Sodium (136-145) mmol/L Potassium (3.5-5.1) mmol/L Chloride (98-107) mmol/L Carbon Dioxide (21-32) mmol/L Anion Gap (10-20) mmol/L BUN (7-18) mg/dL Creatinine (0.55-1.02) mg/dL Est Cr Clr Drug Dosing Estimated GFR (MDRD) Glucose (74-106) mg/dL Calcium (8.5-10.1) mg/dL Corrected Calcium (8.5-10.1) mg/dL Magnesium (1.8-2.4) mg/dL Total Bilirubin (0.2-1.0) mg/dL AST (15-37) U/L ALT (14-59) U/L Alkaline Phosphatase (46-116) U/L Troponin I (<=0.056) ng/mL Total Protein (6.4-8.2) g/dL Albumin (3.4-5.0) g/dL Globulin Albumin/Globulin Ratio Ethyl Alcohol (0-3) mg/dL SARS CoV-2 RNA Rapid ROYA Negative (NEGATIVE) 06/30/20 Range/Units 23:44 WBC (4.0-10.0) x10^3/uL RBC (4.00-5.50) x10^6/uL Hgb (12.0-16.0) g/dL Hct (33.0-47.0) % MCV (78.0-93.0) fL MCH (26.0-32.0) pg MCHC (32.0-36.0) g/dL RDW Coeff of Silver (10.0-15.0) % Plt Count (130-400) x10^3/uL Neut % (Auto) (50.0-80.0) % Lymph % (Auto) (25.0-50.0) % [place]eman % (Auto) (2.0-11.0) % Eos % (Auto) (0.0-4.0) % Baso % (Auto) (0.2-1.2) % PT (9.5-12.3) SEC INR (2.0-3.5) Sodium 137 (136-145) mmol/L Potassium 4.0 (3.5-5.1) mmol/L Chloride 102 (98-107) mmol/L Carbon Dioxide 24 (21-32) mmol/L Anion Gap 15.0 (10-20) mmol/L BUN 19 H (7-18) mg/dL Creatinine 1.8 H (0.55-1.02) mg/dL Est Cr Clr Drug Dosing TNP Estimated GFR (MDRD) 28 Glucose 139 H (74-106) mg/dL Calcium 8.4 L (8.5-10.1) mg/dL Corrected Calcium 9.04 (8.5-10.1) mg/dL Magnesium 1.6 L (1.8-2.4) mg/dL Total Bilirubin 0.4 (0.2-1.0) mg/dL AST 17 (15-37) U/L ALT 15 (14-59) U/L Alkaline Phosphatase 115 (46-116) U/L Troponin I 0.050 (<=0.056) ng/mL Total Protein 6.9 (6.4-8.2) g/dL Albumin 3.2 L (3.4-5.0) g/dL Globulin 3.7 Albumin/Globulin Ratio 0.86 Ethyl Alcohol 5 H (0-3) mg/dL SARS CoV-2 RNA Rapid ROYA (NEGATIVE) Meds: Medications Generic Name Dose Route Start Last Admin Trade Name Freq PRN Reason Stop Dose Admin Sodium Chloride 1,000 mls @ 50 mls/hr 07/01/20 00:08 Normal Saline IV 07/01/20 20:07 ONETIME ONE Sodium Chloride 10 ml 06/30/20 22:19 Saline Flush FLUSH ASDIRECTED PRN Keep Vein Open Discontinued Medications Generic Name Dose Route Start Last Admin Trade Name Freq PRN Reason Stop Dose Admin Ondansetron HCl 4 mg 06/30/20 23:51 Zofran IVPUSH 06/30/20 23:52 ONETIME ONE - Radiology Interpretation Free Text/Narrative:: XR Chest 1V=no acute infiltrates (See final report) Head CT WO=no acute intracranial hemorrhage, possible decreased density in left cerebellum due to infarct or artifact, recommend MRI, cerebral volume loss (See final report) Departure - Departure Time of Disposition: 23:45 Disposition: DC/Tfer to Acute Hospital 02 Condition: Good Clinical Impression: Seizure - Discharge Information Referrals: Del Bernal NP [Primary Care Provider] - Forms: Interfacility Transfer EMTALA - My Orders Last 24 Hours: My Active Orders 06/30/20 22:18 EKG Documentation Completion [RC] STAT URINE DRUG SCREEN,POC [POC] Stat Saline Lock Insert [OM.PC] Stat 06/30/20 22:19 Chest 1V Frontal [CR] Stat Head wo Cont [CT] Stat UA RFX JANICE AND CULT IF INDIC [URIN] Stat Sodium Chloride 0.9% [Saline Flush] 10 ml FLUSH ASDIRECTED PRN 07/01/20 00:08 Sodium Chloride 0.9% [Normal Saline] 1,000 ml IV ONETIME - Assessment/Plan Last 24 Hours: My Active Orders 06/30/20 22:18 EKG Documentation Completion [RC] STAT URINE DRUG SCREEN,POC [POC] Stat Saline Lock Insert [OM.PC] Stat 06/30/20 22:19 Chest 1V Frontal [CR] Stat Head wo Cont [CT] Stat UA RFX JANICE AND CULT IF INDIC [URIN] Stat Sodium Chloride 0.9% [Saline Flush] 10 ml FLUSH ASDIRECTED PRN 07/01/20 00:08 Sodium Chloride 0.9% [Normal Saline] 1,000 ml IV ONETIME Assessment:: 1)Seizure 2)R/O CVA 3)Hx Type 2 DM 4)Hx HTN Plan: -Transfer to [facility] via [facility]
[2020-06-30] MEDS ORDERED: Ondansetron 4 MG/2 ML SDV IVPUSH ONE (23:51)
[2020-07-01] MEDS ORDERED: Sodium Chloride 0.9% 1,000 ML IV ONE (00:08)
[2020-07-01 00:15] LABS: CHLORIDE,CL 102 mmol/L (98-107); SODIUM,NA 137 mmol/L (136-145)
--- NOTE | 2020-07-01 07:53 | CT ---
[id number] CT/CT Head WO IV EXAM: NONCONTRAST HEAD CT INDICATION: WITNESSED SEIZURE IN ER COMPARISON: March 03, 2020. DISCUSSION: The ventricles and sulci are normal in size and configuration. Hypoattenuation in the left posterior inferior cerebellum could represent artifact or an acute to subacute infarct. Consider MRI for further characterization. Mild to moderate chronic small vessel ischemic changes including scattered white matter hypoattenuation and bilateral basal ganglia lacunar infarcts. There are prominent Virchow-Cortez spaces in the lower basal ganglia. No mass effect or midline shift. No acute hemorrhage or extra-axial fluid collection. No acute territorial infarct is identified. Minor scattered bilateral paranasal sinus mucosal thickening. IMPRESSION: Subtle hypodensity in the left cerebellum, artifact versus infarct or other pathology. MRI or follow-up CT could provide further evaluation. Iker Pretty MD 07/01/20 0756 Thank you for allowing us to participate in the care of your patient.
--- NOTE | 2020-07-01 07:55 | CR ---
[id number] RAD/RAD Chest PA or AP 1V EXAM: FRONTAL CHEST INDICATION: WITNESSED SEIZURE IN ER COMPARISON: February 23, 2019. DISCUSSION: Stable scarring in the left mid and lower lung. No acute infiltrates are identified. Normal heart size. No effusions. IMPRESSION: 1. No acute findings. Iker Pretty MD 07/01/20 0754 Thank you for allowing us to participate in the care of your patient.
== END 2020-07-01 01:15 | disposition short-term general hospital (02) ==
LOC: VM.ED 21:58
DX: R56.9 Unspecified convulsions (principal); I10 Essential (primary) hypertension; E78.00 Pure hypercholesterolemia, unspecified; I25.10 Atherosclerotic heart disease of native coronary artery without angina pectoris; F32.9 Major depressive disorder, single episode, unspecified; E11.9 Type 2 diabetes mellitus without complications; Z88.5 Allergy status to narcotic agent; Z88.8 Allergy status to other drugs, medicaments and biological substances; Z79.899 Other long term (current) drug therapy; Z79.02 Long term (current) use of antithrombotics/antiplatelets; Z20.828 Contact with and (suspected) exposure to other viral communicable diseases
CPT/HCPCS: 36415; 70450; 71045; 80053; 80307; 83735; 84484; 85025; 85610; 93005; 96374; 99285; J2405; J7030; U0002; 93010; 99284

== ENCOUNTER 2020-10-24 18:07 | Emergency (ER) | payer MEDICARE, MEDICAID ==
--- NOTE | 2020-10-24 18:27 | EDM.PDOC ---
ED HPI GENERAL MEDICAL PROBLEM - General Time Seen by Provider: 10/24/20 18:27 Source of Information: Reports: Patient, EMS, EMS Notes Reviewed, RN, RN Notes Reviewed History Limitations: Reports: No Limitations - History of Present Illness INITIAL COMMENTS - FREE TEXT/NARRATIVE: Patient is a 70-year-old female who presents to ER per [facility] ambulance service with complaint of a bad cough, shortness of breath, headache, and Covid not getting better. Patient states she was diagnosed last week sometime. She states the county came to her house and tested her and she tested positive. Patient was in to the ER and received BAM infusion on 10/22/2020. Patient admits to some chest tightness, diarrhea which started today, and dizziness. Denies nausea, vomiting, fever, chills, pain. Patient does state a history of diabetes type 2, hypertension. States the cough started last week. She states today when she coughs she has incontinence of diarrhea. Onset: Gradual - Related Data Allergies Allergy/AdvReac Type Severity Reaction Status Date / Time codeine Allergy Abdominal Verified 10/24/20 19:22 Pain isoniazid Allergy Cannot Verified 10/24/20 19:22 Remember methylprednisolone Allergy Cannot Verified 10/24/20 19:22 Remember dye Allergy Itching Uncoded 10/24/20 19:22 Home Meds: Home Meds Citalopram [Citalopram HBr] 40 mg PO DAILY 12/22/17 [History] Clopidogrel Bisulfate [Clopidogrel] 75 mg PO DAILY 12/22/17 [History] Simvastatin [Zocor] 40 mg PO BEDTIME 12/22/17 [History] metFORMIN [Glucophage XR] 1,000 mg PO BIDMEALS 12/22/17 [History] Levothyroxine 25 mcg PO ACBREAKFAST 02/23/19 [History] Albuterol [Proair HFA] 2 puff INH Q4HR PRN 03/03/20 [History] Albuterol [Ventolin 2 MG/5 ML] 0.4 mg PO Q4H PRN 03/03/20 [History] Telmisartan 20 mg PO DAILY 03/03/20 [History] Past Medical History Cardiovascular History: Reports: CAD, High Cholesterol, Hypertension Gastrointestinal History: Reports: GERD Genitourinary History: Reports: Renal Disease Neurological History: Reports: CVA Psychiatric History: Reports: Depression Endocrine/Metabolic History: Reports: Diabetes, Type II - Infectious Disease History Infectious Disease History: Reports: Novel Coronavirus Other Infectious Disease History: Positive Covid test through [facility] - 10/20/2020 Social & Family History - Caffeine Use Caffeine Use: Reports: Coffee, Soda Caffeine Use Comment: 4 to 5 cups of coffee daily; 2 sodas daily ED ROS GENERAL - Review of Systems Review Of Systems: Comprehensive ROS is negative, except as noted in HPI. ED EXAM, GENERAL - Physical Exam Exam: See Below Exam Limited By: No Limitations General Appearance: Alert, WD/WN, No Apparent Distress Eye Exam: Bilateral Eye: EOMI, Normal Inspection Ears: Normal External Exam, Hearing Grossly Normal Nose: Normal Inspection Throat/Mouth: Normal Inspection, Normal Voice, No Airway Compromise Head: Atraumatic, Normocephalic Neck: Normal Inspection, Supple, Non-Tender, Full Range of Motion Respiratory/Chest: No Respiratory Distress, Lungs Clear, Normal Breath Sounds, No Accessory Muscle Use, Chest Non-Tender Cardiovascular: Normal Peripheral Pulses, Regular Rate, Rhythm, No Edema, No Gallop, No JVD, No Murmur, No Rub Peripheral Pulses: 2+: Radial (L), Radial (R) GI/Abdominal: Normal Bowel Sounds, Soft, Non-Tender (Female) Exam: Deferred Rectal (Female) Exam: Deferred Back Exam: Normal Inspection, Full Range of Motion, NT Extremities: Normal Inspection, Normal Range of Motion, Non-Tender, Normal Capillary Refill, No Pedal Edema Neurological: Alert, Oriented, CN II-XII Intact, Normal Cognition, Normal Gait, Normal Reflexes, No Motor/Sensory Deficits Psychiatric: Normal Affect, Normal Mood Skin Exam: Warm, Dry, Intact, Normal Color, No Rash Lymphatic: No Adenopathy Departure - Departure Time of Disposition: 19:18 Disposition: Home, Self-Care 01 Condition: Good Clinical Impression: COVID-19, Cough - Discharge Information *PRESCRIPTION DRUG MONITORING PROGRAM REVIEWED*: No *COPY OF PRESCRIPTION DRUG MONITORING REPORT IN PATIENT PETRA: No Instructions: COVID-19 Frequently Asked Questions, Cough, Adult, [id number], What You Should Know About COVID-19 to Protect Yourself and Others - CDC, How to Safely Wear and Take Off a Mask - [facility], Prevent the Spread of COVID-19 if You Are Sick - [facility] Referrals: Del Bernal, PAUL [Primary Care Provider] - Additional Instructions: May use over the counter Robitussin cough medication as directed for cough May use over the counter Imodium (Loperamide) as directed for diarrhea Follow up with your primary care facility Drink plenty of water Stay at home and 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
== END 2020-10-24 19:18 | disposition home or self-care (01) ==
LOC: VM.ED 18:07
DX: U07.1 COVID-19 (principal); I25.10 Atherosclerotic heart disease of native coronary artery without angina pectoris; E78.00 Pure hypercholesterolemia, unspecified; I10 Essential (primary) hypertension; E11.9 Type 2 diabetes mellitus without complications; Z79.02 Long term (current) use of antithrombotics/antiplatelets; Z79.899 Other long term (current) drug therapy; Z79.84 Long term (current) use of oral hypoglycemic drugs; Z88.5 Allergy status to narcotic agent; Z88.8 Allergy status to other drugs, medicaments and biological substances; Z91.048 Other nonmedicinal substance allergy status
CPT/HCPCS: 99284; 99285

== ENCOUNTER 2022-05-16 10:32 | Emergency (ER) | payer MEDICAID, MEDICARE ==
[2022-05-16] MEDS ORDERED: Sodium Chloride 0.9% 1,000 ML IV ONE (10:49)
[2022-05-16] MEDS ORDERED: Ondansetron 4 MG/2 ML SDV IVPUSH ONE (10:49)
[2022-05-16 11:22] LABS: CHLORIDE,CL 105 mmol/L (98-107); SODIUM,NA 139 mmol/L (136-145)
[2022-05-16 11:27] LABS: ANION GAP 14.8 mmol/L (5-15); ESTIMATED GFR 43 mL/min (>=60)
[2022-05-16] MEDS ORDERED: diphenhydrAMINE 50 MG/ML SDV IVPUSH ONE (11:40)
[2022-05-16 12:19] LABS: CORONAVIRUS COVID-19 NAA NEGATIVE (NEGATIVE)
[2022-05-16 12:23] LABS: BARBITURATE SCREEN,URINE NEGATIVE (NEGATIVE); BENZODIAZEPINES SCREEN,URINE NEGATIVE (NEGATIVE); BUPRENORPHINE SCREEN,URINE NEGATIVE (NEGATIVE); METHAMPHETAMINE SCREEN, URINE NEGATIVE (NEGATIVE); THC SCREEN,URINE 50 NG/ML POSITIVE (NEGATIVE)
== END 2022-05-16 13:28 | disposition home or self-care (01) ==
LOC: VM.ED 10:32
DX: R11.2 Nausea with vomiting, unspecified (principal); I25.10 Atherosclerotic heart disease of native coronary artery without angina pectoris; E78.00 Pure hypercholesterolemia, unspecified; I10 Essential (primary) hypertension; E11.9 Type 2 diabetes mellitus without complications; Z72.0 Tobacco use; Z86.73 Personal history of transient ischemic attack (TIA), and cerebral infarction without residual deficits; Z88.5 Allergy status to narcotic agent; Z88.8 Allergy status to other drugs, medicaments and biological substances; Z91.041 Radiographic dye allergy status; Z79.02 Long term (current) use of antithrombotics/antiplatelets; Z79.899 Other long term (current) drug therapy; Z86.16 Personal history of COVID-19; Z79.84 Long term (current) use of oral hypoglycemic drugs; Z20.822 Contact with and (suspected) exposure to COVID-19
CPT/HCPCS: 0240U; 80053; 80305; 81001; 82150; 83690; 85025; 86140; 96361; 96374; 96375; 99283; J1200; J2405; J7030